=== PATIENT | female | born 1960 | race Caucasian/White ===

== ENCOUNTER 2019-05-22 07:11 | Outpatient (CLI) | payer OTHER, SELFPAY | END 2019-05-22 07:12 | disposition home or self-care (01) | PROVIDERS: Family Provider Family Medicine; PCP Family Medicine; Visit Provider Family Medicine | DX: G45.9 Transient cerebral ischemic attack, unspecified (principal) | CPT/HCPCS: 93880 ==

== ENCOUNTER → 2019-06-03 14:01 | Outpatient (BNVA) | payer OTHER, SELFPAY | PROVIDERS: Family Provider Family Medicine; Visit Provider Otolaryngology | DX: E04.1 Nontoxic single thyroid nodule (principal); R13.10 Dysphagia, unspecified; R53.83 Other fatigue; R53.81 Other malaise; R22.1 Localized swelling, mass and lump, neck; F17.210 Nicotine dependence, cigarettes, uncomplicated | CPT/HCPCS: 99214 ==

== ENCOUNTER 2019-06-12 12:35 | Outpatient (CLI) | payer OTHER, SELFPAY ==
--- NOTE | 2019-06-12 12:41 | XR_ITS ---
WS: [id number] CERVICAL SPINE TECHNIQUE: 3 views of the cervical spine CLINICAL INFORMATION: RIGHT CERVICAL RADICULOPATHY COMPARISON: None. FINDINGS: Normal cervical alignment. No instability on flexion-extension. Mild spondylitic changes. Normal C1-2 articulation. Mild facet arthropathy mid cervical spine. Mild bony foraminal narrowing bilateral C7 -T1 XR/XR cervical spine min 6V [id number] IMPRESSION: 1. Normal cervical alignment. No instability on flexion-extension. 2. Mild spondylitic changes. 3. Mild bilateral bony foraminal narrowing C7-T1.
== END 2019-06-12 12:36 | disposition home or self-care (01) ==
LOC: RAD 12:38
PROVIDERS: Family Provider Family Medicine; Visit Provider Family Medicine
DX: M54.12 Radiculopathy, cervical region (principal); M47.892 Other spondylosis, cervical region
CPT/HCPCS: 72052

== ENCOUNTER → 2019-06-17 11:03 | Outpatient (BNVA) | payer OTHER, SELFPAY | PROVIDERS: Family Provider Family Medicine; Visit Provider Family Medicine | DX: T14.8XXA Other injury of unspecified body region, initial encounter (principal); F41.9 Anxiety disorder, unspecified; R22.1 Localized swelling, mass and lump, neck; R53.81 Other malaise; R53.83 Other fatigue; R13.10 Dysphagia, unspecified; X58.XXXA Exposure to other specified factors, initial encounter | CPT/HCPCS: 85025; 85651; 86308; 87641 ==

== ENCOUNTER → 2019-06-18 10:11 | Outpatient (BNVA) | payer OTHER, SELFPAY | PROVIDERS: Family Provider Family Medicine; Visit Provider Family Medicine | DX: Z01.89 Encounter for other specified special examinations (principal) ==

== ENCOUNTER 2019-06-20 10:25 | Outpatient (CLI) | payer OTHER, SELFPAY ==
--- NOTE | 2019-06-20 10:27 | MR_ITS ---
WS: [id number] MRI HEAD WITH CONTRAST TECHNIQUE: Sagittal T1, T2 axial, T2 axial FLAIR, axial susceptibility weighted imaging, axial diffus ion weighted images, and coronal T2 images were obtained. Pre and post-T1 axial and post T1 coronal i mages. ADC and FSPGR images. CLINICAL INFORMATION: DIZZINESS COMPARISON: CT May 11, 2019 FINDINGS: No evidence restricted diffusion to suggest acute ischemia. Ventricular system and basal cisterns are patent. Minimal small vessel changes. Mild parenchymal volume loss. Normal posterior fossa. Normal v ascular flow voids at the skull base. Mild mucosal thickening in the ethmoid air cells. Mastoid air c ells well aerated. No hemosiderin on the susceptibility weighted images. Normal optic chiasm and pituitary infundibulum. No abnormal intracranial enhancement. Temporal lobes and hippocampal formations are normal in appear ance. MR/MR head wo/w con [id number] IMPRESSION: 1. No evidence of restricted diffusion to suggest acute ischemia. 2. Minimal small vessel changes with mild parenchymal volume loss. 3. No abnormal intracranial enhancement. 4. No hemosiderin on susceptibly weighted images. 5. Mastoid air cells well aerated. 6. Normal posterior fossa.
== END 2019-06-20 10:26 | disposition home or self-care (01) ==
LOC: RADSHAW 10:26
PROVIDERS: Family Provider Family Medicine; PCP Family Medicine; Visit Provider Family Medicine
DX: R42 Dizziness and giddiness (principal)
CPT/HCPCS: 70553; A9579

== ENCOUNTER → 2019-07-08 15:12 | Outpatient (BNVA) | payer OTHER, SELFPAY | PROVIDERS: Family Provider Family Medicine; PCP Family Medicine; Visit Provider Otolaryngology | DX: R13.10 Dysphagia, unspecified (principal); R22.1 Localized swelling, mass and lump, neck; E04.1 Nontoxic single thyroid nodule; R53.83 Other fatigue; R53.81 Other malaise; F17.210 Nicotine dependence, cigarettes, uncomplicated | CPT/HCPCS: 99213; 99214 ==

== ENCOUNTER → 2019-08-12 09:52 | Outpatient (BNVA) | payer OTHER, SELFPAY | PROVIDERS: Family Provider Family Medicine; PCP Family Medicine; Visit Provider Otolaryngology | DX: E04.1 Nontoxic single thyroid nodule (principal); R13.10 Dysphagia, unspecified; R22.1 Localized swelling, mass and lump, neck; R53.83 Other fatigue; R53.81 Other malaise; M48.00 Spinal stenosis, site unspecified; F17.210 Nicotine dependence, cigarettes, uncomplicated | CPT/HCPCS: 99213; 99214 ==

== ENCOUNTER 2019-10-17 08:58 | Outpatient (CLI) | payer OTHER, SELFPAY ==
--- NOTE | 2019-10-17 09:09 | XRR_ITS ---
PROCEDURE INFORMATION: Exam: XR Chest, 2 Views Exam date and time: 10/17/2019 9:24 AM Age: 59 years old Clinical indication: Cough; Prior surgery; Surgery type: Breast; Additional info: Cough x 1 year TECHNIQUE: Imaging protocol: XR of the chest Views: 2 views. COMPARISON: CR Chest 1 [place] [id number] 07/18/2018 10:52 AM FINDINGS: Lungs: Unremarkable. No consolidation. Pleural space: Unremarkable. No pleural effusion. No pneumothorax. Heart/Mediastinum: Unremarkable. No cardiomegaly. Bones/joints: Unremarkable. XR/XR chest 2V* [id number] IMPRESSION: No acute findings.
== END 2019-10-17 08:59 | disposition home or self-care (01) ==
LOC: RAD 09:02
PROVIDERS: PCP Family Medicine; Visit Provider Family Medicine
DX: R05 Cough (principal)
CPT/HCPCS: 71046

== ENCOUNTER 2019-10-17 09:39 | Outpatient (CLI) | payer OTHER, SELFPAY ==
--- NOTE | 2019-10-17 09:48 | CT_ITS ---
WS: [id number] CT NECK TECHNIQUE: Contrast-enhanced CT of the neck with coronal and sagittal reformatted images. CLINICAL INFORMATION: CERVICAL LYMPHADENOPATHY COMPARISON: None. DLP: 1658.[address] scans at [facility] use at least one of these dose optimization techniques: automat ed exposure control; mA and/or kV adjustment per patient size (includes targeted exams where dose is matched to clinical indication); or iterative reconstruction. FINDINGS: Parotid glands are normal in appearance. Normal submandibular glands. Tongue base is normal in appear ance. Normal parapharyngeal fat. No evidence of supraglottic or glottic mass. Low-attenuation left th yroid nodule measuring 6 mm. A few prominent cervical lymph nodes not pathologically enlarged. Normal vallecula and piriform sinuses. Mastoid air cells and paranasal sinuses are well aerated. Lungs are well aerated. CT/CT neck w con* [id number] IMPRESSION: 1. Parotid glands and submandibular glands are normal in appearance. 2. No evidence of supraglottic or glottic mass. 3. Small 6 mm low-attenuation lesion left thyroid. This can be followed up wit h ultrasound. 4. No cervical lymphadenopathy.
[2019-10-17] MEDS: iohexol 300 mg/mL 100 mL Btl IV (10:58)
== END 2019-10-17 09:40 | disposition home or self-care (01) ==
PROVIDERS: PCP Family Medicine; Visit Provider Family Medicine
DX: R59.0 Localized enlarged lymph nodes (principal); E07.89 Other specified disorders of thyroid
CPT/HCPCS: 70491; Q9967

== ENCOUNTER 2019-10-30 12:46 | Outpatient (CLI) | payer OTHER, SELFPAY ==
[2019-10-31 12:31] LABS: Quest SARS-CoV-2 RNA NOT DETECTED (NOT DETECTED)
== END 2019-10-30 12:47 | disposition home or self-care (01) ==
LOC: LAB 12:48
PROVIDERS: PCP Family Medicine; Visit Provider Family Medicine
DX: R50.9 Fever, unspecified (principal)
CPT/HCPCS: 87635

== ENCOUNTER 2019-11-06 07:27 | Outpatient (CLI) | payer OTHER, SELFPAY ==
--- NOTE | 2019-11-06 07:33 | US_ITS ---
WS: [id number] THYROID ULTRASOUND REASON FOR EXAM: THYROID NODULE TECHNIQUE: Grayscale and Doppler ultrasound examination of the thyroid gland. FINDINGS: RIGHT: Right thyroid gland measures 4.2 cm x 1.5 cm x 1.9 cm. Right thyroid volume equals 6.2 ccm3. Along th e inferior pole of the right lobe there is a cystic lesion measures 0.3 x 0.3 x 0.3 cm. Additional th ere is evidence of a small adenoma measured 0.34 x 0.24 x 0.25 cm well encapsulated. LEFT: Left thyroid gland measures 4.2 cm x 1.9 cm x 1.6 cm. Left thyroid volume equals 6.7 ccm3. Thyroid isthmus: 0.2 mm. US/US thyroid [id number] IMPRESSION: Inferior pole of the right lobe shows a small adenoma that appears to be benign . Addition to this there is associated along the inferior pole of a small benign cysts. The left lobe appeared to be normal.
== END 2019-11-06 07:28 | disposition home or self-care (01) ==
LOC: US 07:28
PROVIDERS: PCP Family Medicine; Visit Provider Family Medicine
DX: E04.1 Nontoxic single thyroid nodule (principal); D36.7 Benign neoplasm of other specified sites
CPT/HCPCS: 76536

== ENCOUNTER 2021-07-12 16:57 | Emergency (ER) | payer OTHER, SELFPAY ==
--- NOTE | 2021-07-12 17:01 | USR_ITS ---
PROCEDURE INFORMATION: Exam: US Duplex Right Lower Extremity Veins, Limited Exam date and time: 07/12/2021 5:01 PM Age: 61 years old Clinical indication: Pain; Leg, lower; Right; Additional info: Possible dvt TECHNIQUE: Imaging protocol: Real-time Duplex ultrasound of the Right Lower Extremity with 2-D astudillo scale, color Doppler flow and spectral waveform analysis with image documentation. Limited exam was focused on the right lower extremity veins. COMPARISON: No relevant prior studies available. FINDINGS: Right deep veins: Unremarkable. The common femoral, femoral, proximal profunda femoral and popliteal veins are patent without thrombus. Normal Doppler waveforms. Normal compressibility and/or augmentation response. Right superficial veins: Unremarkable. Saphenofemoral junction is patent without thrombus. Soft tissues: Unremarkable. US/[place] [id number] IMPRESSION: No evidence of deep vein thrombosis.
[2021-07-12 17:06] VITALS: BP 166/94; PULSE 85; RESP 16; TEMP 36.8; O2SAT 98; BMI 24.9
[2021-07-12 17:11] VITALS: BP 175/95; O2SAT 97
--- NOTE | 2021-07-12 17:23 | ED_ITS ---
HPI - Extremity Problem General: Chief complaint: Extremity Problem,Nontraumatic Stated complaint: Dr sent for poss bloodclot RT Knee Time Seen by Provider: 07/12/21 17:23 Source: patient Mode of arrival: ambulatory History of Present Illness: 61-year-old female presents emergency room with right leg pain and swelling. Is primarily base around her knee states she is uncomfortable to flex the knee. She was seen by her primary care doctor and referred here for to be evaluated for possible DVT. No trauma involved she cannot recall any twisting falling or other injury that seem to precipitated. Progressed over the last several days to today's point where she is difficult time walking. MD Complaint: extremity swelling Onset (ago): day(s) (1) Pain Consistency: constant Location: right Quality: aching Associated symptoms: Deny chest pain, fever(s) or rash Review of Systems Const: Denies: fever(s), chills, body aches, change in appetite, fatigue or malaise ENMT: Denies: throat pain, ear or mastoid pain, nasal discharge or nasal congestion Card: Denies: chest pain, edema, dyspnea on exertion or orthopnea Resp: Denies: dyspnea, productive cough or non-productive cough GI: Denies: abdominal pain, nausea, vomiting, hematemesis, coffee ground emesis, diarrhea, constipation, bloating, hematochezia or melena : Denies: flank pain, difficulty voiding, dysuria, urinary frequency or urinary urgency Skin/Breast: Denies: rash or pruritus PFSH ED PFSH: Medical History (Updated 07/12/21 @ 17:37 by Royer Quinn DO) Anxiety Hypertension Surgical History History of lumpectomy Family History Father Stroke CAD (coronary artery disease) Other Cancer Hypertension Social History Smoking and tobacco status: current every day smoker cigarettes Packs smoked per day: 1 Alcohol intake: current Alcohol intake frequency: 3 or more drinks per day Alcohol type: beer History of recent travel: No Physical Exam Const: COMMON NORMALS: no acute distress GENERAL APPEARANCE: cooperative and comfortable ORIENTATION/CONSCIOUSNESS: Yes awake, Yes oriented to person, Yes oriented to place and Yes oriented to time HENMT: COMMON NORMALS: normocephalic, atraumatic and hearing grossly normal bilaterally HEAD & SCALP: normocephalic and atraumatic Neck/C-Spine: COMMON NORMALS: no JVD Resp: COMMON NORMALS: normal respiratory effort, No retractions, No use of accessory muscles and clear to auscultation bilaterally AUSCULTATION: clear to auscultation bilaterally Cardio: COMMON NORMALS: no JVD, regular rate, regular rhythm and No murmurs present (Cardio) RATE: regular rate RHYTHM: regular rhythm GI: COMMON NORMALS: Soft to palpation and No hepatosplenomegaly present AUSCULTATION: Yes normoactive bowel sounds PALPATION: Yes Soft to palpation, No Tenderness to palpation present (GI), No Guarding due to palpation present (GI) and Yes No hepatosplenomegaly present Extremity: COMMON NORMALS: normal to inspection, capillary refill normal, no clubbing, cyanosis or edema, no calf tenderness and no pedal edema Neuro: SENSORIUM/ORIENTATION: Yes oriented to person, Yes oriented to place and Yes oriented to time Skin: COMMON NORMALS: no rashes or lesions noted GENERAL SKIN EXAM: no rash es or lesions noted Course Vital Signs: Vital signs: Vital Signs Temperature 98.2 F 07/12/21 17:06 Pulse Rate 85 07/12/21 17:06 Respiratory Rate 16 07/12/21 17:06 Blood Pressure 175/95 07/12/21 17:11 Pulse Oximetry 97 07/12/21 17:43 MDM - Extremity (Nontraumatic) Medical Decision Making No DVT on venous duplex. On exam knee is normal. Will discharge home use anti-inflammatories. Medical Records I reviewed the patient's medical records. Lab Data I reviewed the patient's lab results. : 07/12/21 17:40 07/12/21 17:40 Radiology Impressions Venous Duplex 07/12/21 17:01 IMPRESSION: No evidence of deep vein thrombosis. Laboratory Results WBC 11.0 10^3/uL (4.0-10.0) H 07/12/21 17:40 RBC 4.66 10^6/uL (4.1-5.3) 07/12/21 17:40 Hgb 14.5 g/dL (11.5-15.3) 07/12/21 17:40 Hct 43.5 % (37.0-47.0) 07/12/21:40 MCV 93.3 fl (81-99) 07/12/21 17:40 MCH 31.1 pg (28.0-34.0) 07/12/21 17:40 MCHC 33.3 g/dL (30.0-36.0) 07/12/21:40 RDW 12.4 % (12.1-15.1) 07/12/21 17:40 Plt Count 419 10^3/cmm (130-400) H 07/12/21:40 MPV 9.4 fL (7.4-10.4) 07/12/21:40 Neut % (Auto) 51.7 % 07/12/21:40 Lymph % (Auto) 39.2 % 07/12/21:40 [place] % (Auto) 6.3 % 07/12/21:40 Eos % (Auto) 2.1 % 07/12/21 17:40 Baso % (Auto) 0.4 % 07/12/21:40 Neut # (Auto) 5.71 10^3/uL (1.8-7.7) 07/12/21:40 Lymph # (Auto) 4.3 10^3/uL (0.8-4.8) 07/12/21:40 [place] # (Auto) 0.7 10^3/uL (0.2-0.9) 07/12/21:40 Eos # (Auto) 0.2 10^3/uL (0.0-0.8) 07/12/21:40 Baso # (Auto) 0.0 10^3/uL (0.0-0.1) 07/12/21:40 Nucleated RBC % (auto) 0 % 07/12/21: Nucleated RBCs # 0.0 /100WBC 07/12/21:40 PT 13.40 SECONDS (12.1-14.9) 07/12/21:40 INR 0.99 (0.8-1.2) 07/12/21:40 Sodium 140 mmol/L (136-145) 07/12/21 17:40 Potassium 3.6 mmol/L (3.5-5.1) 07/12/21 17:40 Chloride 102 mmol/L (98-107) 07/12/21 17:40 Carbon Dioxide 23 mmol/L (22-29) 07/12/21 17:40 Anion Gap 18.6 (5-19) 07/12/21 17:40 BUN 5 mg/dL (8-23) L 07/12/21 17:40 Creatinine 0.4 mg/dL (0.5-0.9) L 07/12/21 17:40 GFR Calculation 162.8 mL/min (90-130) H 07/12/21 17:40 Glucose 99 mg/dL (65-115) 07/12/21 17:40 Calculated Osmolality 287 mOsm/kg (285-295) 07/12/21 17:40 Calcium 9.7 mg/dL (8.5-10.5) 07/12/21 17:40 Total Bilirubin 0.4 mg/dL (0.15-1.2) 07/12/21 17:40 AST 5 U/L (0-32) 07/12/21 17:40 ALT 18 U/L (0-33) 07/12/21 17:40 Alkaline Phosphatase 144 IU/L (35-105) H 07/12/21 17:40 Total Protein 7.8 g/dL (6.6-8.7) 07/12/21 17:40 Albumin 4.7 g/dL (3.5-5.2) 07/12/21 17:40 Globulin 3.1 g/dL (1.3-4.6) 07/12/21 17:40 Discharge Plan Discharge Patient Disposition: Home Clinical Impression: Acute knee pain Condition: Stable Prescriptions: New diclofenac sodium 75 mg tablet,delayed release (DR/EC) 75 mg PO Q12H PRN (Reason: pain) Qty: 20 0RF No Action amlodipine 2.5 mg tablet 2.5 mg PO QDAY 0RF paroxetine HCl [Paxil] 20 mg tablet 20 mg PO QDAY Qty: 30 2RF alprazolam 0.25 mg tablet 0.25 mg PO BID PRN (Reason: anxiety) Qty: 30 0RF verapamil 120 mg capsule,ext rel. pellets 24 hr 120 mg PO QAM 0RF cephalexin 500 mg capsule 500 mg PO BID 0RF Rx Instructions: as directed losartan 25 mg tablet 25 mg PO DAILY 0RF diphenhydramine HCl [Benadryl] 25 mg capsule 25 mg PO ONCE PRN0RF loratadine [Claritin] 10 mg tablet 10 mg PO ONCE 0RF fluticasone propionate [Allergy Relief (fluticasone)] 50 mcg/actuation spray,suspension 1 spray INTRANASAL Q12H 0RF lavender oil Oil 1 applic miscellaneous ONCE 0RF lemon oil Oil miscellaneous 0RF joanna (Zingiber officinalis) 250 mg capsule 250 mg PO ONCE 0RF Discharge Orders: Discharge ED (Routine); Ordered 07/12/21 Ordered By: Royer Quinn Referrals: Obi Encarnacion MD [Primary Care Provider] - Discharge Diet: Usual diet Discharge Activity: Increase activity as tolerated Patient Instructions: Opioid Safety Activity Restrictions/Additional Instructions: Follow-up with your primary caregiver tomorrow Coding Level of Care Code ED Voip Technician for Weig Fwd Exam Comprehensive
[2021-07-12 17:43] VITALS: O2SAT 97
[2021-07-12 17:48] LABS: Basophils % 0.4 %; Eosinophils # 0.2 10^3/uL (0.0-0.8); Eosinophils % 2.1 %; Hematocrit 43.5 % (37.0-47.0); Hemoglobin 14.5 g/dL (11.5-15.3); Lymphocytes # 4.3 10^3/uL (0.8-4.8); Lymphocytes % 39.2 %; Mean Corpuscular HGB Conc 33.3 g/dL (30.0-36.0); Mean Corpuscular Hemoglobin 31.1 pg (28.0-34.0); Mean Corpuscular Volume 93.3 fl (81-99); Mean Platelet Volume 9.4 fL (7.4-10.4); Monocytes # 0.7 10^3/uL (0.2-0.9); Monocytes % 6.3 %; Neutrophils # 5.71 10^3/uL (1.8-7.7); Neutrophils % 51.7 %; Nucleated Red Blood Cells % 0 %; Platelet Count 419 10^3/cmm (130-400); Red Blood Count 4.66 10^6/uL (4.1-5.3); Red Cell Distribution Width 12.4 % (12.1-15.1)
[2021-07-12 18:13] LABS: Alanine Aminotransferase 18 U/L (0-33); Albumin Level 4.7 g/dL (3.5-5.2); Alkaline Phosphatase 144 IU/L (35-105); Anion Gap 18.6 (5-19); Blood Urea Nitrogen 5 mg/dL (8-23); Calcium 9.7 mg/dL (8.5-10.5); Carbon Dioxide 23 mmol/L (22-29); Chloride 102 mmol/L (98-107); Globulin 3.1 g/dL (1.3-4.6); Glomerular Filtration Rate 162.8 mL/min (90-130); Glucose 99 mg/dL (65-115); Osmolality Calculated 287 mOsm/kg (285-295); Potassium 3.6 mmol/L (3.5-5.1); Sodium 140 mmol/L (136-145); Total Bilirubin 0.4 mg/dL (0.15-1.2); Total Protein 7.8 g/dL (6.6-8.7)
[2021-07-12 18:19] LABS: Creatinine Clr Calc Pharmacy 139.6087; INR 0.99 (0.8-1.2)
[2021-07-12 18:22] LABS: Aspartate Amino Transferase 5 U/L (0-32)
== END 2021-07-12 18:05 | disposition home or self-care (01) ==
PROVIDERS: Nurse Practitioner Family; Emergency Provider Family Medicine; PCP Family Medicine
DX: M25.561 Pain in right knee (principal); I10 Essential (primary) hypertension; F17.210 Nicotine dependence, cigarettes, uncomplicated
CPT/HCPCS: 80053; 85025; 85610; 93971; 99283

== ENCOUNTER 2022-06-07 07:57 | Outpatient (CLI) | payer OTHER, SELFPAY ==
--- NOTE | 2022-06-07 08:06 | USCV_ITS ---
Natalie Thurston Age: 62 Gender: F : 1960 Exam Date: 06/07/2022 08:22 Ordering Phys: Bud Etienne MD Technologist: CT Exam [place] [facility] [place] Indication: hypertension Aortic Velocity @ SMA (cm/s) 85.9 RIGHT KIDNEY LEFT KIDNEY Velocity (cm/s) Velocity (cm/s) Sys/South Sys/South Resistive Index Resistive Index 124.1 / 35.0 0.72 Proximal Renal Artery 77.2 / 18.2 0.76 164.5 / 49.9 0.70 Mid Renal Artery 93.8 / 29.4 0.69 118.6 / 30.4 0.74 Distal Renal Artery 133.6 / 32.1 0.76 120.6 / 33.3 0.72 Hilar 69.0 / 14.9 0.78 46.9 / 20.0 0.57 Upper Pole 56.3 / 15.3 0.73 34.3 / 11.9 0.65 Mid Pole 35.9 / 12.9 0.64 32.3 / 11.5 0.64 Lower Pole 27.8 / 10.3 0.63 1.90 Renal Aortic Ratio 1.56 Accleration Index (cm/sec2) 2058.0 Hilar 799.00 0 441.00 Upper Pole 979.00 636.00 Mid Pole 523.00 572.00 Lower Pole 639.00 112.6 Kidney Length (mm) 120.9 FINDINGS No evidence of abdominal aortic aneurysm. There is no evidence of hemodynamically significant right renal artery stenosis. There is no evidence of hemodynamically significant left renal artery stenosis. Normal size kidneys. CONCLUSIONS No sonographic evidence of hemodynamically significant renal artery stenosis bilaterally. Dr. Marcela Mitchell DO (Electronically Signed) Final Date: 07 June 2022 09:22 S
== END 2022-06-07 07:58 | disposition home or self-care (01) ==
LOC: RAD 08:01
PROVIDERS: PCP Internal Medicine; Visit Provider Internal Medicine
DX: I10 Essential (primary) hypertension (principal)
CPT/HCPCS: 93975

== ENCOUNTER 2022-07-21 10:09 | Outpatient (CLI) | payer OTHER, SELFPAY ==
--- NOTE | 2022-07-21 | ECG_ITS ---
[facility] Test Date: 2022-07-21 Pat Name: Natalie Thurston Department: Room: Gender: Female Online Communications Manager: : 1960 Requested By: Bud Etienne Order Number: [id number] Luci MD: Isidro Saab M.D. Interpretive Statements NAME OF STUDY: LEXISCAN SESTAMIBI STRESS TEST INDICATION: HTN, PROCEDURE: At the baseline, the EKG revealed normal sinus rhythm with a normal ST Ts. The baseline heart was 82 bpm with a blood pressue of 142/75 mm of Hg Lexiscan was infused over a period of 20 seconds. A total of 0.4 milligrams of Lexiscan was infused. The stress phase was continued for a total of 5 minutes. Heart rate at the end of the stress phase was 105 bpm with a blood pressure 133/67 mm of Hg. The EKG at the peak infusion revealed no significant changes. Sestamibi was injected 20 seconds after the Lexiscan infusion. Heart rate at the end of the recovery phase was 95 bpm with a blood pressure of 129/64 mm of Hg. CONCLUSION: 1. No significant EKG changes with the LexiScan infusion 2. No LexiScan induced chest pain or cardiac arrhythmia 3. Normal blood pressure and heart rate response 4. Sestamibi/sestamibi perfusion scan pending; see separate report. Electronically Signed On 07-22-2022 16:49:23 CHAR FILTER TANK TENDER by Isidro Saab M.D. [id number]
[2022-07-21 11:52] VITALS: BMI 26.1
--- NOTE | 2022-07-21 11:53 | NMCV_ITS ---
NM christiano perf SPECT r/s* [id number] Natalie Thurston Age: 62 Gender: F : 1960 Exam Date: 07/21/2022 12:36 Ordering Phys: Bud Etienne MD Technologist: SUKHJINDER Mcpherson Exam Location: [facility] Indications: HYPERTENSION STRESS TEST Please see separate stress test report in [facility] for full findings IMAGE PROTOCOL Rest/Stress 1 Lexiscan Day Radiopharmaceutical Dose (mCi) Administration Site Administered by Rest: Tc-99m 11.0 IV SUKHJINDER Davies Sestamibi Stress:Tc-99m 32.3 IV SUKHJINDER Davies Sestamibi Rest: 21-Jul-2022 60 Discovery 630 Stress: 21-Jul-2022 30 Discovery 630 0.4mg Lexiscan. Images obtained in supine and prone position. SPECT RESULTS Technical Quality: Excellent Raw Data Analysis: Normal Image Corrections: No attenuation or motion correction applied Summed Stress Score: 0 Summed Rest Score: 0 Summed Difference Score: 0 PERFUSION FINDINGS Uniform myocardial tracer uptake with no significant perfusion abnormalities FUNCTIONAL RESULTS (calculated via Gated SPECT) Stress Image LV EF (%): 83 Stress EDV (mL):59 TID: 1.13 Stress ESV (mL):10 FUNCTIONAL FINDINGS: Segmental wall motion analysis revealing no gross wall motion abnormalities IMPRESSIONS 1. Uniform myocardial tracer uptake with no significant perfusion abnormalities. 2. Normal LV ejection fraction of 83% 3. LV wall motion analysis revealing no gross wall motion abnormalities. 4. Normal LV volume Low probability for coronary ischemia, based on the above findings Dr Isidro Saab MD FACC (Electronically Signed) Final Date: 21 July 2022 17:13 S
[2022-07-21] MEDS: regadenoson 0.4 Mg/5 ml Syringe IVP (12:14)
[2022-07-21 12:30] VITALS: BP 129/64; PULSE 95
== END 2022-07-21 10:10 | disposition home or self-care (01) ==
PROVIDERS: PCP Internal Medicine; Visit Provider Internal Medicine
DX: I10 Essential (primary) hypertension (principal)
CPT/HCPCS: 36415; 78452; 93017; 96374; A9500; J2785

== ENCOUNTER → 2022-09-21 15:38 | Outpatient (BNVA) | payer OTHER, SELFPAY | PROVIDERS: PCP Internal Medicine; Visit Provider Nurse Practitioner Family | DX: N39.0 Urinary tract infection, site not specified (principal) | CPT/HCPCS: 81003; 87077; 87086; 87184 ==

== ENCOUNTER 2022-12-21 16:39 | Outpatient (CLI) | payer OTHER, SELFPAY ==
--- NOTE | 2022-12-21 | CT_ITS ---
WS: [id number] CT PARANASAL SINUSES HISTORY: SUBACUTE FRONTAL SINUSITIS TECHNIQUE: Contiguous 2.0 mm axial images obtained through the sinuses. Images are reconstructed in s agittal and coronal planes. All CT scans at [facility] use at least one of these dose optimiz ation techniques: automated exposure control; mA and/or kV adjustment per patient size (includes targ eted exams where dose is matched to clinical indication); or iterative reconstruction. DLP: 392.88 mGy.cm COMPARISON: 10/09/2017 Frontal sinuses: Normal. Sphenoid sinus: Normal. Ethmoid sinuses: Normal. Maxillary sinus: Normal. No air-fluid levels. No mucous retention cyst. There is a thin septation in the RIGHT maxillary antrum. Ostiomeatal unit: There is a very small amount mucoperiosteal thickening at the ostiomeatal units. No obstruction on the RIGHT. Mild narrowing on the LEFT. 4 mm deviation of the nasal septum to the LEFT with small spur. CT/CT sinus wo con* [id number] IMPRESSION: 1. No air-fluid levels within the sinuses. 2. Very minimal increased soft tissue at the ostiomeatal units. No complete ob struction. 3. 4 mm LEFT nasal septal deviation.
== END 2022-12-21 16:40 | disposition home or self-care (01) ==
PROVIDERS: PCP Internal Medicine; Visit Provider Internal Medicine
DX: J32.1 Chronic frontal sinusitis (principal); J34.2 Deviated nasal septum
CPT/HCPCS: 70486

== ENCOUNTER 2024-02-15 10:40 | Outpatient (CLI) | payer OTHER, SELFPAY ==
--- NOTE | 2024-02-15 10:46 | MR_ITS ---
WS: [id number] MRI LUMBAR SPINE NONCONTRAST HISTORY: RADICULOPATHY,THORACOLUMBAR REGION COMPARISON: None available. TECHNIQUE: Sagittal and axial multisequence imaging is submitted. Normal lumbar alignment with no compression fractures or marrow edema. Mild disc space narrowing and desiccation. Conus terminates normally at L1-2 disc level. L1-L2: Bilateral facet joint arthritis, LEFT greater than RIGHT. No stenosis. L2-L3: Mild annular disc bulging with mild ligamentum flavum and facet arthritis. No stenosis. L3-L4: Mild diffuse annular disc bulging with a shallow LEFT foraminal disc protrusion. Bilateral fac et joint arthritis and ligamentum flavum hypertrophy. There is very mild bilateral foraminal narrowin g and subarticular recess stenosis. Greater encroachment upon the LEFT exiting L3 nerve root. L4-L5: Mild annular disc bulging. LEFT foraminal disc protrusion. Facet joint arthritis and ligamentu m flavum hypertrophy. Mild central, bilateral subarticular recess and foraminal stenosis. L5-S1: Mild broad-based disc bulging. Ligamentum flavum and facet arthritis. Small amount of fluid in the facet joints. 5 mm cyst associated with the LEFT facet joint with mild encroachment upon the exi ting LEFT L5 nerve root. There is additional synovitis involving the L5-S1 facet joints. Fluid in the facet joints with periarticular soft tissue edema. There is a small amount of edema in the S1 pedicl es. Paravertebral soft tissues are negative. MR/MR lumbar spine wo con* [id number] IMPRESSION: 1. No acute lumbar spine fracture or high-grade stenosis. 2. L5-S1: Facet joint synovitis with fluid in the facet joints and periarticul ar edema. There is a 5 mm LEFT facet joint cyst encroaching into the LEFT sam en contacting the exiting LEFT L5 nerve root. 3. L3-4: Shallow LEFT foraminal disc protrusion and facet arthritis. There is mild bilateral foraminal and subarticular recess stenosis. Greater encroachment upon the exiting LEFT L3 nerve root. 4. L4-5: Mild central, bilateral subarticular recess and foraminal stenosis. S hallow LEFT foraminal disc protrusion.
--- NOTE | 2024-02-15 10:46 | MR_ITS ---
WS: [id number] MRI THORACIC SPINE without contrast HISTORY: RADICULOPATHY, THORACOLUMBAR REGION COMPARISON: None available. TECHNIQUE: Multiplanar sequences are performed in sagittal and axial planes. Very slight increase in the thoracic kyphosis. Posterior thoracic vertebral body alignment is normal. Disc spaces are very slightly narrowed and desiccated. No fracture or marrow edema. Normal cord sign al. No cord atrophy or enlargement. T1-2: Normal. T2-3: Normal. T3-4: Normal. T4-5: Normal. T5-6: Normal. T6-7: Normal. T7-8: Tiny central disc protrusion. Mild facet arthritis. T8-9: Bilateral facet joint arthropathy and mild foraminal narrowing. T9-10: Mild bilateral facet arthropathy and foraminal narrowing. T10-11: Mild facet arthropathy and foraminal narrowing. T11-12: Normal. Paravertebral soft tissues are normal. MR/MR thoracic spin wo con* [id number] IMPRESSION: 1. No significant disc protrusions or high-grade stenosis. 2. Mild degenerative changes in the thoracic spine as described above. 3. No marrow edema.
== END 2024-02-15 10:41 | disposition home or self-care (01) ==
LOC: RAD 10:41
PROVIDERS: PCP Internal Medicine; Visit Provider Internal Medicine
DX: M54.15 Radiculopathy, thoracolumbar region (principal); M46.94 Unspecified inflammatory spondylopathy, thoracic region
CPT/HCPCS: 72146; 72148

== ENCOUNTER → 2025-04-28 16:09 | Outpatient (BNVA) | payer MEDICARE, MEDICAID, SELFPAY | PROVIDERS: PCP Internal Medicine; Visit Provider Obstetrics & Gynecology | DX: Z01.419 Encounter for gynecological examination (general) (routine) without abnormal findings (principal) | CPT/HCPCS: 87624 ==

== ENCOUNTER 2025-05-06 14:13 | Outpatient (CLI) | payer MEDICARE, MEDICAID, SELFPAY ==
--- NOTE | 2025-05-06 14:20 | MM_ITS ---
WS: [id number] BILATERAL 3D TOMOSYNTHESIS DIGITAL SCREENING MAMMOGRAPHY WITH CAD CLINICAL INFORMATION: Z12.39 - Encounter for other screening for malignant neop... HISTORY: Screening mammogram. No current complaints. COMPARISON: 2018 TECHNIQUE: Bilateral CC and MLO views. FINDINGS: Scattered fibroglandular densities bilaterally. No suspicious focal mass, asymmetry, calcifications, or architectural distortion. No evidence of malignancy. Incidental punctate calcifications bilaterally. MM/MM scr tomosynthesis [id number] IMPRESSION: DENSITY: There are scattered areas of fibroglandular density. BI-RADS: 2 - Benign. FOLLOW UP: 1 Year Follow-up Recommend return to annual screening mammography.
== END 2025-05-06 14:14 | disposition home or self-care (01) ==
LOC: MOBLMAM 14:15
PROVIDERS: PCP Internal Medicine; Visit Provider Obstetrics & Gynecology
DX: Z12.31 Encounter for screening mammogram for malignant neoplasm of breast (principal); R92.323 Mammographic fibroglandular density, bilateral breasts; R92.1 Mammographic calcification found on diagnostic imaging of breast
CPT/HCPCS: 77063; 77067